=== PATIENT | female | born 1960 | race Caucasian/White ===

== ENCOUNTER → 2020-03-09 | Outpatient (CLI) | payer OTHER ==
[~2020-03-09] MED LIST: PENTASA; ZOCOR40 MG PO
== END ==
LOC: COL.RAD 13:35
DX: M25.552 Pain in left hip (principal)
CPT/HCPCS: J3301; Q9967

== ENCOUNTER → 2020-09-15 | Outpatient (CLI) | payer OTHER | LOC: COL.RAD 08:00 | DX: M16.12 Unilateral primary osteoarthritis, left hip (principal) | CPT/HCPCS: J3301; Q9967 ==

== ENCOUNTER → 2021-04-04 | Outpatient (CLI) | payer OTHER | LOC: COL.RAD 03-30 09:45 | DX: M16.11 Unilateral primary osteoarthritis, right hip (principal); M16.12 Unilateral primary osteoarthritis, left hip | CPT/HCPCS: J3301; Q9967 ==

== ENCOUNTER 2021-05-06 10:55 | Day surgery (SDC) | payer OTHER ==
[~2021-05-06] VITALS: Ht 167.6 cm; Wt 63.4 kg
[2021-05-06 12:05] VITALS: BP 133/95; PULSE 82; TEMP 98.7
[2021-05-06] MEDS ORDERED: ZOCOR 10MG10 MG PO (12:13)
[2021-05-06] MEDS ORDERED: PENTASA500 MG PO (12:14)
[2021-05-06] MEDS ORDERED: NATURE'S BLE1000 MCG PO (12:15)
[2021-05-06] MEDS ORDERED: VTAMINC250TA PO (12:15)
[2021-05-06 13:10] VITALS: BP 127/84; PULSE 75
--- NOTE | 2021-05-06 13:10 | NUR ---
Patient returns to [facility] per cart after having EGD. Transfers from cart to recliner with one person assist. IV fluids infusing. Spouse in room. Call light in reach. Given water to drink. Offered snack and states they are going out for lunch.
[2021-05-06 13:25] VITALS: BP 122/78; PULSE 71
--- NOTE | 2021-05-06 13:25 | NUR ---
Patient is drinking Pepsi. Dr. Stack. All questions answered.
--- NOTE | 2021-05-06 13:30 | NUR ---
IV discontinued and site is free of redness or swelling.
[2021-05-06 13:37] VITALS: BP 127/84; PULSE 75
--- NOTE | 2021-05-06 13:40 | NUR ---
Dismissal instructions given and patient voices understanding of home cares. Patient dismissed to home driven by spouse. Taken to the front door per wheelchair and assisted into vehicle with instructions in hand.
== END 2021-05-06 13:40 | disposition home or self-care (01) ==
LOC: SDCO 10:55
DX: K21.9 Gastro-esophageal reflux disease without esophagitis (principal); K44.9 Diaphragmatic hernia without obstruction or gangrene; K50.90 Crohn's disease, unspecified, without complications; R13.10 Dysphagia, unspecified; R07.9 Chest pain, unspecified; E78.5 Hyperlipidemia, unspecified; Z79.899 Other long term (current) drug therapy
CPT/HCPCS: 32149

== ENCOUNTER → 2021-08-16 | Outpatient (CLI) | payer OTHER ==
[~2021-08-16] MED LIST changes: +NATURE'S BLE1000 MCG PO; +PENTASA500 MG PO; +VTAMINC250TA PO; +ZOCOR 10MG10 MG PO
== END ==
LOC: COL.RAD 12:47
DX: M16.0 Bilateral primary osteoarthritis of hip (principal)
CPT/HCPCS: J3301; Q9967

== ENCOUNTER → 2023-09-20 | Outpatient (CLI) | payer OTHER ==
[~2023-09-20] MED LIST changes: +Iohexol 300 - 10 ML VIAL IV ONE; +Triamcinolone 40 MG/ML 1 ML VIAL IJ ONE
== END ==
LOC: COL.RAD 08:25
DX: M16.11 Unilateral primary osteoarthritis, right hip (principal)
CPT/HCPCS: J0665; J3301; Q9967

== ENCOUNTER 2023-11-13 05:26 | Day surgery (SDC) | payer OTHER ==
[~2023-11-13] VITALS: Ht 167.6 cm; Wt 71.2 kg
[2023-11-13] VITALS (10 sets, daily range): BP systolic 110–139; BP diastolic 62–91; PULSE 62–86; TEMP 97.6–98.1
[~2023-11-13 05:26] MED LIST changes: +Acetaminophen 500 MG TAB PO SCH; +Celecoxib 200 MG CAP PO SCH; +Gabapentin 100 MG CAP PO SCH; -Iohexol 300 - 10 ML VIAL IV ONE; +LR 1,000 ML IV SCH; -Triamcinolone 40 MG/ML 1 ML VIAL IJ ONE
[2023-11-13] MEDS ORDERED: diazePAM 5 MG TAB PO SCH (05:45)
[2023-11-13] MEDS ORDERED: LR 1,000 ML IV SCH (05:45)
[2023-11-13] MEDS ORDERED: Scopolamine 1 MG Delivered 3-Day PATCH TD SCH (05:45)
[2023-11-13 06:07] LABS: COLLECTION METHOD CLEAN CATCH
[2023-11-13 06:19] LABS: URINE APPEARANCE CLEAR (CLEAR/HAZY); URINE BLOOD NEGATIVE (NEGATIVE); URINE COLOR YELLOW (YELLOW); URINE GLUCOSE NEGATIVE (NEGATIVE); URINE KETONE NEGATIVE (NEGATIVE); URINE NITRATE NEGATIVE (NEGATIVE); URINE PROTEIN(semi-quant) NEGATIVE (NEGATIVE); URINE UROBILINOGEN 0.2 E.U/dL (0.2-1.0)
[2023-11-13 06:45] LABS: MEAN CELL VOLUME 88 fl (80.0-100.0); MEAN CORPUSCULAR HEMOGLOBIN 31 pg (27-31); MEAN CORPUSCULAR HGB CONC 35 g/dl (33.0-37.0); MEAN PLATELET VOLUME 9.2 fl (7.4-10.4); PLATELET COUNT 158 K/mm3 (130-400); REDCELL DISTRIBUTION WIDTH-CV 12.6 % (11.5-14.5)
[2023-11-13 06:53] LABS: HEMATOCRIT 36.9 % (37.0-47.0)
[2023-11-13 07:03] LABS: ALBUMIN 3.9 g/dL (3.4-4.8); BILIRUBIN,TOTAL 0.6 mg/dL (0.2-1.2); CALCIUM 9.6 mg/dL (8.4-10.2); CREATININE, serum 0.66 mg/dL (0.57-1.11); POTASSIUM 3.4 mEq/L (3.5-4.5); TOTAL PROTEIN 6.5 g/dl (6.2-8.1)
[2023-11-13] MEDS ORDERED: Rocuronium 50 MG/5 ML Multi-Dose VIAL ONE (07:08)
[2023-11-13] MEDS ORDERED: fentaNYL 50 MCG/ML 5 ML VIAL ONE (07:08)
[2023-11-13] MEDS ORDERED: Lidocaine PF 2% (20 MG/ML) 5 ML VIAL ONE (07:12)
[2023-11-13] MEDS ORDERED: dexAMETHasone 10 MG/ML VIAL ONE (07:12)
[2023-11-13] MEDS ORDERED: Ketorolac 30 MG/ML VIAL ONE ×2 (07:12→10:10)
[2023-11-13] MEDS ORDERED: Lidocaine 1% w EPI (1:100,000) 20 ML Multi-Dose VIAL SQ ONE (08:00)
[2023-11-13] MEDS ORDERED: Indocyanine Green 25 MG KIT UR ONE (08:00)
[2023-11-13] MEDS ORDERED: fentaNYL 50 MCG/ML 2 ML VIAL ONE (08:55)
[2023-11-13] MEDS ORDERED: Ondansetron 4 MG/2 ML VIAL ONE (10:10)
[2023-11-13] MEDS ORDERED: Ondansetron 4 MG/2 ML VIAL IV PRN ×2 (11:00→11:45)
[2023-11-13] MEDS ORDERED: Naloxone 0.4 MG/ML VIAL IV PRN ×2 (11:00→11:45)
[2023-11-13] MEDS ORDERED: droPERidol 2.5 MG/ML 2 ML VIAL IV PRN (11:00)
[2023-11-13] MEDS ORDERED: HYDROmorphone 1 MG/1 ML SYRINGE [PACU/SDC ONLY] IV PRN (11:00)
[2023-11-13] MEDS ORDERED: fentaNYL 50 MCG/ML 1 ML SYRINGE/VIAL [PACU/SDC ONLY] IV PRN (11:00)
--- NOTE | 2023-11-13 11:30 | NUR ---
PATIENT TO ROOM 222 VIA BED, THIS RN RECIEVES REPORT FROM FOOD PROCESSING CHEMIST.
[2023-11-13] MEDS ORDERED: oxyCODONE 5 MG TAB PO PRN (11:45)
[2023-11-13] MEDS ORDERED: Acetaminophen 500 MG TAB PO SCH (12:40)
[2023-11-14 00:20] VITALS: BP 110/50; PULSE 79; TEMP 98.1
[2023-11-14 03:30] VITALS: BP 111/63; PULSE 78; TEMP 97.9
[2023-11-14 07:30] VITALS: BP 111/60; PULSE 66; TEMP 98.5
[2023-11-14] MEDS ORDERED: LR 1,000 ML IV SCH (09:00)
--- NOTE | 2023-11-14 09:58 | NUR ---
Initial visit; Patient thanked Boiler Tube Reamer for stopping and visiting with her. Patient walking so that she would be deemed as ready to be discharged from the hospital. Boiler Tube Reamer wished her well and she thanked Boiler Tube Reamer.
--- NOTE | 2023-11-14 12:58 | NUR ---
0900- PT MADRID REMOVED. TP TOLERATED WELL. 1045- DR LARA AT BEDSIDE TALKING WITH PT. 1100- PT URINATED 250 MLS INTO HAT. 13MLS LEFT IN BLADDER. CALLED DR LARA TO UPDATE. 1145- PT CALLED RN TO BEDSIDE TO SCAN BLADDER. RN 153MLS. ASKED PT IF SHE FELT THE URGE TO URINATE. PT RESPONDED NO, BUT JUST WANTED TO GO HOME. THIS RN ASKED IF PT COULD WAIT ANOTHER 30 MINUTES AND WE COULD RESCAN. PT SAID YES, SHE JUST WANTED TO GET OUT OF HERE. 1230- PT BLADDER SCAN SHOWS 536MLS IN BLADDER. PT URINATED 600 INTO HAT. RESIDUAL SCAN SHOWED NO URINE LEFT IN BLADDER. CALLED DR LARA TO UPDATE. DR LARA SAID PT COULD GO HOME. 1245- INT REMOVED. 1248- PT AND SPOUSE AMBULATED OFF UNIT TO HOME.
== END 2023-11-14 12:48 | disposition home or self-care (01) ==
LOC: SDCO 05:26 → OB 11:30 → SDCO 11-14 12:48
PROVIDERS: Student in an Organized Health Care Education/Training Program
DX: N81.3 Complete uterovaginal prolapse (principal); N80.03 Adenomyosis of the uterus; R39.15 Urgency of urination; Z85.828 Personal history of other malignant neoplasm of skin; Z87.891 Personal history of nicotine dependence
CPT/HCPCS: OP; A4314; C1781; J0690; J1100; J1885; J2405; J2704; J3010; J7120